=== PATIENT | male | born 1970 | race Caucasian/White ===

== ENCOUNTER 2025-08-24 14:05 | Emergency (ER) | payer BC, SELFPAY ==
--- OUTSIDE RECORDS SUMMARY | 2025-08-23 21:33 | XMS_ITS | Encounter Summary ---
Author Organization [facility] Address [address] [place] [address] Care Team Providers Care Adjunct Mathematics Instructor Name Role Phone Clinic, [facility] Primary Care Provider Reason for Visit * Reason Comments Neck Pain Encounter Details Date Type Department Care Team (Late st Contact Info) Description 08/23/2025 9:33 PM CDT - 08/23/2025 11:54 PM CDT Emergency [facility] Emergency Dept [address] [place] [address] Andreas Blanco, [facility] [address] [place], [place] [id number] Neck pain (Primary Dx) Discharge Disposition: Home or Self Care Social History Tobacco Use Types Packs/Day Years Used Date Smoking Tobacco: Never Smokeless Tobacco: Current Alcohol Use Standard Drinks/Week Comments No 0 (1 standard drink = 0.6 oz pur e alcohol) Adolescent Education Answer Date Record ed Getting School Help Needed Not on file 09/08 Sex and Gender Information Value Date Recorded Sex Assigned at Not on file 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 Gender Identity Not on file Sexual Orientation Not on file documented as of this encounter Last Filed Vital Signs Vital Sign Reading Time Taken Comments Blood Pressure 149/82 08/23/2025 11:10 PM CDT Pulse 98 08/23/2025 6:41 PM CDT Temperature 37.4 C (99.4 F) 08/23/2025 6:41 PM CDT Respiratory Rate 18 08/23/2025 6:41 PM CDT Oxygen Saturation 94% 08/23/2025 11: 10 PM CDT Inhaled Oxygen Concentration - - Weight 111.1 kg (244 lb 14.9 oz) 08/23/2025 6:41 PM CDT Height - - Body Mass Index 34.16 10/04/2017 5:37 PM CDT documented in this encounter Discharge Instructions * Discharge Instructions* Andreas Blanco DO - 08/23/2025 11:28 PM CDT Pain medications as prescribed. Ice and heat as discussed. Follow-up with your orthopedic doctor. Return with any new or worsening symptoms, numbness, tingling, weakness, fevers, any new or worseningsymptoms or for any other concerns documented in this encounter Medications at Time of Discharge methocarbamol (ROBAXIN) 500 MG tablet Take 1 tablet (500 mg) by mouth 4 times daily for 5 days. 20 tablet 08/23/2025 08/28/2025 OMEPRAZOLE PO documented as of this encounter ED Notes * Andreas Blanco DO - 08/23/2025 9:43 PM CDT Emergency Department Note History of Present Illness Chief Complaint Neck Pain HPI Bo Barron Jr. is a 54 year old male who presents to the ED for neck pain. The patient reports that he woke up this morning with neck pain along the right side of his neck the worsens with moving of his neck. The pain is to the point he describes he can't even eat because movement of his neck increases ashley. He denies any arm pain or back pain. Of note, his last dose oxycodone was 1400. Patient is status post left shoulder surgery 4 to 5 days ago. Denies shoulder pain. There is no rednessor swelling or drainage from the shoulder. Denies fever. He had been sleeping in a chair until lastnight when he slept in bed. He woke up this morning he has the pain and stiffness in his neck. Independent Historian None Review of External Notes Past Medical History Medical History and Problem List GERD Hemorrhoid Herniation of cervical intervertebral disc with radiculopathy Presbyopia Regular astigmatism of right eye Medications Celebrex Aspirin 81 Roxicodone Deltasone Omeprazole Surgical History Tonsillectomy ME unlisted procedure hands and finger Physical Exam Patient Vitals for the past 24 hrs: BP Temp Temp src Pulse Resp SpO2 Weight 08/23/25 2310 (!) 149/82 -- -- -- -- 94 % -- 08/23/25 2223 (!) 165/94 -- -- -- -- -- -- 08/23/25 1841 (!) 144/100 99.4 ??F (37.4 ??C) Temporal 98 18 97 % 111.1 kg (244 lb 14.9 oz) Physical Exam Constitutional: Appearance: Normal appearance. Pulmonary: Effort: Pulmonary effort is normal. Musculoskeletal: General: No swelling. Skin: General: Skin is warm and dry. Capillary Refill: Capillary refill takes less than 2 seconds. Neurological: Mental Status: He is alert and oriented to person, place, and time. Diagnostics Lab Results Labs Ordered and Resulted from Time of ED Arrival to Time of ED Departure - No data to display Imaging No orders to display EKG Independent Interpretation None ED Course Medications Administered Medications oxyCODONE-acetaminophen (PERCOCET) 5-325 MG per tablet 2 tablet (2 tablets Oral $Given 08/23/252212) ketorolac (TORADOL) injection 15 mg (15 mg Intramuscular $Given 08/23/252212) LORazepam (ATIVAN) tablet 1 mg (1 mg Oral $Given 08/23/252212) ondansetron (ZOFRAN ODT) ODT tab 4 mg (4 mg Oral $Given 08/23/252212) dexAMETHasone PF (DECADRON) injection 10 mg (10 mg Intramuscular $Given 08/23/252212) Procedures Procedures Discussion of Management None ED Course ED Course as of 08/23/252328Aug 23, [id number] I obtained history and examined the patient as noted above Additional Documentation None Medical Decision Making / Diagnosis [facility] Diagnoses: None MIPS None [facility] Bo Barron Jr. is a 54 year old male pain to the paraspinous musculature of the neck. A dressing on his left shoulder is clean, dry, intact. No fevers. Good perfusion on exam. Denies shoulder pain. Denies trauma or injury but did sleep in a new set up last night after which he woke up with pain. He does not have any fevers. Following treatment patient feels much better. He is able to rangeof motion the neck. We discussed outpatient management and reasons for return Disposition The patient was discharged. Diagnosis ICD-10-CM 1. Neck pain M54.2 Discharge Medications New Prescriptions METHOCARBAMOL (ROBAXIN) 500 MG TABLET Take 1 tablet (500 mg) by mouth 4 times daily for 5 days. Scribe Disclosure: I, Dewayne Burris, am serving as a scribe at 9:55 PM on 08/23/2025 to document services personally performed by Andreas Blanco DO based on my observations and the provider's statements to me. Andreas Blanco DO 08/23/252328 * Kassidy Menon RN - 08/23/2025 6:43 PM CDT Presents to triage with c/o lateral neck pain. He had L shoulder replacement about a week ago and has been in a sling and sleeping in a chair since. Last night he decided to sleep in his bed and thentoday he has had severe muscle pain on both sides of his neck. Oxy at 1400, flexeril at 1600. He had mild relief of symptoms and was able to sleep a bit after flexeril. documented in this encounter Plan of Treatment Not on file documented as of this encounter Visit Diagnoses Diagnosis Neck pain- Primary Cervicalgia documented in this encounter Administered Medications Inactive Administered Medications - up to 3 most recent administrations Medication Order MAR Action Action Date Dose Rate Site dexAMETHasone PF (DECADRON) injection 10 mg 10 mg, Intramuscular, ONCE, Administer over 1 Minutes, On Sat08/23/25 at 2205, For 1 dose $Given 08/23/2025 10:13 PM CDT 10 mg ketorolac (TORADOL) injection 15 mg 15 mg, Intramuscular, ONCE, On Sat08/23/25 at 2205, For 1 dose, Can cause pain on injection. If ordered intravenously (IV) : administer through a running maintenance fluid over 1 minute followed by a flush. If patient complains of pain on injection, may dilute 15-30 mg in 5 mL and push over 1 to 2 minutes. $Given 08/23/2025 10:13 PM CDT 15 mg LORazepam (ATIVAN) tablet 1 mg 1 mg, Oral, ONCE, On Sat08/23/25 at 2205, For 1 dose $Given 08/23/2025 10:13 PM CDT 1 mg ondansetron (ZOFRAN ODT) ODT tab 4 mg 4 mg, Oral, ONCE, On Sat08/23/25 at 2205, For 1 dose, With dry hands, peel back foil backing and gently remove tablet. Do not push oral disintegrating tablet through foil backing. Administer immediately on tongue and oral disintegrating tablet dissolves in seconds, then swallow with saliva. Liquid not required. $Given 08/23/2025 10:13 PM CDT 4 mg oxyCODONE-acetaminophen (PERCOCET) 5-325 MG per tablet 2 tablet 2 tablet, Oral, ONCE, On Sat08/23/25 at 2205, For 1 dose, Maximum acetaminophen dose from all sources= 75 mg/kg/day not to exceed 4 grams $Given 08/23/2025 10:13 PM CDT 2 tablets documented in this encounter Active and Recently Administered Medications Times are shown in CDT. Scheduled Medication Order 08/21/2025 08/22/2025 08/23/2025 dexAMETHasone PF (DECADRON) injection 10 mg (COMPLETED) 10 mg, Intramuscular, ONCE, Administer over 1 Minutes, On Sat08/23/25 at 2205, For 1 dose 2212 ($Given - Provi leta: Lakshmi Galindo RN) ketorolac (TORADOL) injection 15 mg (COMPLETED) 15 mg, Intramuscular, ONCE, On Sat08/23/25 at 2205, For 1 dose, Can cause pain on injection. If ordered intravenously (IV) : administer through a running maintenance fluid over 1 minute followed by a flush. If patient complains of pain on injection, may dilute 15-30 mg in 5 mL and push over 1 to 2 minutes. 2212 ($Given - Provi leta: Lakshmi Galindo RN) LORazepam (ATIVAN) tablet 1 mg (COMPLETED) 1 mg, Oral, ONCE, On Sat08/23/25 at 2205, For 1 dose 2212 ($Given - Provi leta: Lakshmi Galindo RN) ondansetron (ZOFRAN ODT) ODT tab 4 mg (COMPLETED) 4 mg, Oral, ONCE, On Sat08/23/25 at 2205, For 1 dose, With dry hands, peel back foil backing and gently remove tablet. Do not push oral disintegrating tablet through foil backing. Administer immediately on tongue and oral disintegrating tablet dissolves in seconds, then swallow with saliva. Liquid not required. 2212 ($Given - Provi leta: Lakshmi Galindo RN) oxyCODONE-acetaminophen (PERCOCET) 5-325 MG per tablet 2 tablet (COMPLETED) 2 tablet, Oral, ONCE, On Sat08/23/25 at 2205, For 1 dose, Maximum acetaminophen dose from all sources= 75 mg/kg/day not to exceed 4 grams 2212 ($Given - Provi leta: Lakshmi Galindo RN) documented in this encounter Care Teams Adjunct Mathematics Instructor Relationship Specialty Start Date End Date [facility], [facility] [address] [place] [address] PCP - General 10/04/17 documented as of this encounter
--- OUTSIDE RECORDS SUMMARY | 2025-08-24 14:08 | XMS_ITS | Encounter Summary ---
Author Organization [facility] Address [address] [place] [address] Care Team Providers Care Manager Respiratory Name Role Phone [facility] Thornton Ruston Primary Care Provider Encounter Details Date Type Department Care Team (Latest Contact Info) Description 08/23/2025 Travel Social History Tobacco Use Types Packs/Day Years Used Date Smoking Tobacco: Never Smokeless Tobacco: Current Alcohol Use Standard Drinks/Week Comments No 0 (1 standard drink = 0.6 oz pur e alcohol) Adolescent Education Answer Date Record ed Getting School Help Needed Not on file 09/08 Sex and Gender Information Value Date Recorded Sex Assigned at Not on file 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
--- OUTSIDE RECORDS SUMMARY | 2025-08-24 14:08 | XMS_ITS | Clinical Summary ---
Author Organization [facility] Address Counts include 234 beds at the [facility] [place] [address] Care Team Providers Care Tour Sales Representative Name Role Phone Guido Lundy MD Primary Care Provider [phone] Allergies Active Allergy Reactions Criticality Noted Date Comments Penicillins Angioedema 02/12/2011 Witch Karla Rash Medium 07/23/2013 Medications Omeprazole 20 mg tablet Take 1 tablet by mouth once daily before a meal. 0 03/23/2019 Active acetaminophen (TYLENOL EXTRA STRGTH) 500 mg tablet 08/17/2025 Active Active Problems Problem Noted Date Diagnosed Date Regular astigmatism of right eye 02/15/2020 Presbyopia 06/13/2018 Herniation of cervical inter vertebral disc with radiculopathy 12/25/2017 Overview (12/28/2024): December 2017: MRI showing right foraminal Stenosis at C4-C5, C7-T1, and T1-T2. JANET done at [facility] Dec: Rayus C7-T1 interlaminar JANET. Hemorrhoid 08/05/2013 GERD (gastroesophageal reflux disease) Encounters Date Type Department Care Team Description 08/17/2025 3:15 PM CDT Office Visit [facility] [place] [place] [address] [place] [address] Jessie Sanchez PA Pre-Op Exam (DOS 08/19/25 ) 08/17/2025 Travel from Last 3 Months Immunizations Immunization Administration Dates Next Due Influenza, IIV4 09/02/2020,08/30/2017 Tdap 06/24/2014 Family History Medical History Relation Name Comments Heart Disease Father Hypertension Father Cancer-breast Mother Other Mother glaucoma Heart Disease Paternal Grandfather Severa l MIs, pacemaker Cancer Paternal Grandmother unsure type Relation Name Status Comments Father Alive Maternal Grandfather Maternal Grandmother Mother Alive Paternal Grandfather Paternal Grandmother Social History Tobacco Use Types Packs/Day Years Used Date Smoking Tobacco: Former Smokeless Tobacco: Current Snuff, Chew Tobacco Cessation:Ready to Q uit: No; Counseling Given: Yes Comments:about 1/4 a tin per day Alcohol Use Standard Drinks/Week Comments No 0 (1 standard drink = 0.6 oz pur e alcohol) Alcoholic Drinks/day: <1 PHQ-2 Answer Date Recorded PHQ-2 TOTAL SCORE 0 11/15/2022 Social Connections Answer Date Recorded Do you often feel lonely or isolated from those around you? 0 01/22/2025 Alcohol Use Answer Date Recorded How often do you have a drink containing alcohol ? 1 08/17/2025 How many drinks containing a lcohol do you have on a typical day when you are drinking? 0 08/17/2025 How often do you have five or more drinks on one occasion? 1 08/17/2025 Financial Resource Strain Answer Date R ecorded Difficulty of Paying Living Expenses 3 01/22/2025 Difficulty of Paying Living Expenses Not on file 01/22/2025 Food Insecurity Answer Date Recorded Do you worry your food will run out before you are able to buy more? 1 01/22/2025 Transportation Needs Answer Date Record ed Does lack of transportation keep you from medica l appointments? 1 01/22/2025 Does lack of transportation keep you from work, meetings or getting things that you need? 1 01/22/2025 Housing Stability Answer Date Recorded What is your housing situation today? 1 01/22/2025 Utilities Answer Date Recorded Do you have trouble paying f or utilities (for example, heat, electricity, water, phone)? 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 Not on file Not on file Obstetrics History Last Filed Vital Signs Vital Sign Reading Time Taken Comments Blood Pressure 139/79 08/17/2025 3:15 PM CDT Pulse 62 08/17/2025 3:15 PM CDT Temperature 36.6 C (97.8 F) 11/15/2022 2:10 PM EMERGENCY PLANNING AND RESPONSE MANAGER Respiratory Rate 16 11/15/2022 2:10 PM EMERGENCY PLANNING AND RESPONSE MANAGER Oxygen Saturation 96% 08/17/2025 3:15 PM CDT Inhaled Oxygen Concentration - - Weight 111 kg (244 lb 11.2 oz) 08/17/2025 3:15 P M CDT Height 177.8 cm (5' 10) 08/17/2025 3:15 PM CDT Body Mass Index 35.11 08/17/2025 3:15 PM CDT Plan of Treatment Upcoming Encounters Date Type Department Care Team (Late st Contact Info) Description 08/26/2025 1:50 PM CDT [facility] [address] [place] [address] Guido Lundy MD [address] [place] [address] Health Maintenance Due Date Last Done Comments HIV for age 15-65 1985 Hepatitis C screening for ag e 18-79 1988 Hepatitis B series for 19+ ( 1 of 3 - 19+ 3-dose series) 1989 Colonoscopy through age 75 2015 Pneumococcal series for age 50+ (1 of 1 - PCV) 2020 Zoster (shingles) series for age 50+ (1 of 2) 2020 Depression screening for age 12+ 11/15/2023 11/15/2022, 09/02/2020, 04/01/2017, Additional history exists Tetanus booster 06/24/2024 06/24/2014 COVID-19 vaccine series ( - season) 2025 Influenza Vaccine (#1) 2025 09/02/2020, 2016 Lipids for age 45-75 09/02/2025 09/02/2020, 04/01/2017, 06/24/2014 BMI (ht and wt on same day) for age 18+ 08/17/2026 08/17/2025, 10/09/2024, 11/15/2022, Additional history exists RSV vaccine for adults or (1 - 1-dose 75+ series) 2045 Procedures Procedure Name Priority Date/Time Associated Diagnosis Comments HEMOGLOBIN Routine 08/17/2025 3:36 PM CDT Pre-op exam Arthritis of left shoulder region LIPID PANEL W REFLEX MEASURED LDL Routine 09/02/2020 4:13 PM CDT Screening cholesterol level from Last 3 Months or Most Recently Relevant to Health Maintenance Results * HEMOGLOBIN (08/17/2025 3:36 PM CDT) HEMOGLOBIN 14.4 13.2 - 17.1 g/dL 08/18/2025 9:53 AM CDT [facility] MCV 87.2 80.0 - 100.0 fL 08/18/2025 9:53 AM CDT [facility] Blood BLOOD SPECIMEN / Unknown Non-Lab Venipuncture / Unknown 08/17/2025 3:36 PM CDT 08/17/2025 3:36 PM CDT Jessie IVAN HEMATOLOGY Final R esult [facility] [address] [address], [place] [phone] * LIPID PANEL W REFLEX MEASURED LDL (09/02/2020 4:13 PM CDT) CHOLESTEROL,TOTAL 162 100 - 199 mg/dL 09/02/2020 7:05 PM CDT [facility] TRIGLYCERIDES 66 <150 mg/dL 09/02/2020 7:05 PM CDT [facility] HDL CHOLESTEROL 51 >40 mg/dL 0 7:05 PM CDT [facility] NON-HDL CHOLESTEROL 111 <145 mg/dl 09/02/2020 7:05 PM CDT [facility] CHOL/HDL RATIO 3.18 <4.50 09/02/2020 7:05 PM CDT [facility] LDL CHOLESTEROL 98 <=130 mg/dL 09/02/2020 7:05 PM CDT [facility] PROVIDER ORDERED STATUS RANDOM 09/02/2020 7:05 PM CDT [facility] Blood BLOOD SPECIMEN / Unknown Venipuncture / Unknown 09/02/2020 4:13 PM CDT 09/02/2020 4:14 PM CDT us Sandhya Nancy Rafaela DO CHEMISTRY Final Resul t [facility] [address] [place] [address], from Last 3 Months or Most Recently Relevant to Health Maintenance Insurance [employer] [facility] * Guarantor: BTD Account Type Relation to Patient Date of Phone Billing Address [facility] Employer ATTN ACCOUNTS PAYABLE [address] [place] [address] Care Teams Tour Sales Representative Relationship Specialty Start Date End Date Guido Lundy MD [address] [place] [address] PCP - General Family Practice 11/14/23
--- OUTSIDE RECORDS SUMMARY | 2025-08-24 14:08 | XMS_ITS | Clinical Summary ---
Author Organization [facility] Address [address] [place] [address] Care Team Providers Care Gang Worker Name Role Phone Clinic, [facility] Don[facility]ly Primary Care Provider Allergies Active Allergy Reactions Criticality Noted Date Comments Penicillins 10/04/2017 No Clinical Screening - Other Allergy 10/04/2017 Witchhazel Witch Karla Rash Medium 07/23/2013 Medications OMEPRAZOLE PO Active methocarbamol (ROBAXIN) 500 MG tablet Take 1 tablet (500 mg) by mouth 4 times daily for 5 days. 20 tablet 08/23/2025 Active Encounters Date Type Department Care Team Description 08/23/2025 9:33 PM CDT - 08/23/2025 11:54 PM CDT Emergency [facility] Emergency Dept [address] [place] [address] Andreas Blanco, Neck pain (Primary Dx) Discharge Disposition: Home or Self Care 08/23/2025 Travel from Last 3 Months Social History Tobacco Use Types Packs/Day Years Used Date Smoking Tobacco: Never Smokeless Tobacco: Current Alcohol Use Standard Drinks/Week Comments No 0 (1 standard drink = 0.6 oz pur e alcohol) Adolescent Education Answer Date Record ed Getting School Help Needed Not on file 09/08 Sex and Gender Information Value Date Recorded Sex Assigned at Not on file 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 Gender Identity Not on file Sexual Orientation Not on file Last Filed Vital Signs Vital Sign Reading [...] 14.9 oz) 08/23/2025 6:41 PM CDT Height 180.3 cm (5' 11) 10/04/2017 5:37 PM CDT Body Mass Index 34.16 10/04/2017 5:37 PM CDT Plan of Treatment Health Maintenance Due Date Last Done Comments ADVANCE CARE PLANNING 1970 ANNUAL REVIEW OF HM ORDERS 1970 CT COLONOGRAPHY 1970 FIT 1970 FLEX SIG 1970 sDNA (Cologuard) 1970 COLONOSCOPY 1980 COLORECTAL CANCER SCREENING 1980 HIV SCREENING 1985 HEPATITIS C SCREENING 1988 HEPATITIS B VACCINE (1 of 3 - 19+ 3-dose series) 1989 LIPID 2010 PNEUMOCOCCAL VACCINE 50+ YEARS (1 of 1 - PCV) 2020 ZOSTER VACCINE (1 of 2) 2020 DIABETES SCREENING 10/04/2020 10/04/2017 YEARLY PREVENTIVE VISIT 09/02/2021 09/02/20 20, 04/01/2017, 02/12/2011 DTAP/TDAP/TD VACCINE (2 - Td or Tdap) 06/24/2024 06/24/2014 PHQ-2 (once per calendar year) 2024 COVID-19 VACCINE (1 - 2023-2 5 season) 2025 INFLUENZA VACCINE (#1) 2025 0, 08/30/2017 HPV VACCINE (No Doses Required) Completed MENINGITIS VACCINE Aged Out No longer eligible based on patient's age to complete this topic Procedures Procedure Name Priority Date/Time Associated Diagnosis Comments COMPREHENSIVE METABOLIC PANEL STAT 10/04/2017 5:43 PM CDT from Last 3 Months or Most Recently Relevant to Health Maintenance Results * (ABNORMAL) Comprehensive metabolic panel (10/04/2017 5:43 PM T) Sodium 138 133 - 144 mmol/L 10/04/2017 6:44 PM [facility] Potassium 4.0 3.4 - 5.3 mmol/L 10/04/2017 6:44 PM [facility] Chloride 104 94 - 109 mmol/L 10/04/2017 6:44 PM [facility] Carbon Dioxide 27 20 - 32 mmol/L 10/04/2017 6:44 PM [facility] Anion Gap 7 3 - 14 mmol/L 10/04/2017 6:44 PM [facility] Glucose 88 70 - 99 mg/dL 10/04/2017 6:44 PM [facility] Urea Nitrogen 24 7 - 30 mg/dL 10/04/2017 6:44 PM [facility] Creatinine 0.98 0.66 - 1.25 mg/dL 10/04/2017 6:44 PM [facility] GFR Estimate 82 >60 mL/min/1.7 m2 10/04/2017 6:44 PM [facility] Comment:Non GFR Calc GFR Estimate If Black >90 >60 mL/min/1.7 m2 10/04/2017 6:44 PM [facility] Comment: GFR Calc Calcium 8.4(L) 8.5 - 10.1 mg/dL 10/04/2017 6:44 PM [facility] Bilirubin Total 0.3 0.2 - 1.3 mg/dL 10/04/2017 6:44 PM [facility] Albumin 4.0 3.4 - 5.0 g/dL 10/04/2017 6:44 PM [facility] Protein Total 7.2 6.8 - 8.8 g/dL 10/04/2017 6:44 PM [facility] Alkaline Phosphatase 81 40 - 150 U/L 10/04/2017 6:44 PM [facility] ALT 22 0 - 70 U/L 10/04/2017 6:44 PM [facility] AST 21 0 - 45 U/L 10/04/2017 6:44 PM CDT [facility] Blood specimen (specimen) 10/04/2017 5:43 PM CDT 10/04/2017 6:22 PM CDT us Gilmer Petersen MD LAB - BLOOD ORDERABLES Fi nal Result [facility] [address] [place] [id number] [phone] from Last 3 Months or Most Recently Relevant to Health Maintenance Insurance Care Teams Gang Worker Relationship Specialty Start Date End Date [facility], [facility] [address] [place] [address] PCP - General 10/04/17
[2025-08-24 14:25] VITALS: BP 142/90; PULSE 101; RESP 18; TEMP 36.7; O2SAT 93; BMI 34.2
--- NOTE | 2025-08-24 16:29 | ED.GENADULT ---
HPI - General Adult General Date Seen: 08/24/25 Chief complaint: Neck Injury/Pain Stated complaint: Pain in neck/shortness of breath Time Seen by Provider: 08/24/25 16:28 History of Present Illness HPI narrative: 54 yo M with a past medical history of known bulging cervical discs at C3, C4, C5, C6. He has had trouble with neck pain off and on for a few years but has never had neck surgery. He has had steroid injections several times in the past, most recently about 1 year ago. He also had trouble with his left shoulder so underwent a left shoulder total replacement done through [facility] 3 4 days ago last Saturday. He was sent home from [facility] with pain meds but says that his shoulders really not been hurting him very much. He is when wearing his immobilizer in doing the appropriate exercises with his hand. He was sleeping sitting up in the chair for the 1st few days but then on Saturday night tried to sleep lying flat in bed. When he woke up Saturday he was having severe pain in the posterior midline of his C-spine at the base of his skull. The pain hurts a lot whenever he tries to turn his head side to side and sometimes radiates up into the base of his skull. He feels like he probably re-exacerbate of 1 of his discs. He is not having any pain or numbness radiating down his arms. No pain or numbness in his low back or his legs. No anterior neck pain. No sore throat. No fever. He went to the ER at [facility] yesterday and received oral pain med and was discharged home. His pain is not any better today. He came to the ER here in [place] today because he was dissatisfied with his [facility] yesterday. He is worried that he has a bulging disc in his neck and wants an MRI of his C-spine. Additionally he has having ongoing severe pain and cannot turn his head side to side. Related Data Home Medications ?Medication ?Instructions ?Recorded ?Confirmed acetaminophen 500 mg tablet 1,000 mg PO Q6H PRN pain 08/24/25 08/24/25 aspirin 81 mg tablet,delayed 162 mg PO DAILY 08/24/25 08/24/25 release celecoxib 200 mg capsule 200 mg PO BID 08/24/25 08/24/25 oxycodone 5 mg tablet 5 - 10 mg PO Q4H PRN pain 08/24/25 08/24/25 sennosides 8.6 mg-docusate sodium 2 tab PO DAILY PRN 08/24/25 08/24/25 50 mg tablet (Senexon-S) Previous Rx's ?Medication ?Instructions ?Recorded hydromorphone 2 mg tablet 2 mg PO Q4-6H PRN pain #14 tabs 08/24/25 (Dilaudid) Allergies Allergy/AdvReac Type Severity Reaction Status Date / Time Penicillins Allergy Verified 08/24/25 14:24 witch [facility] Allergy Verified 08/24/25 14:24 [facility] PFSH Social History Smoking Status: Never smoker Do you use any of these nicotine containing products: Smokeless Tobacco How often do you have a drink containing alcohol: never AUDIT-C Alcohol total score: 0 Non-prescribed substance use: denies use Exam Narrative: Exam Narrative: Constitutional: Appears well-developed and well-nourished. Alert. Conversant. Non toxic. HENT: Head: Atraumatic. Nose: Nose normal. Mouth/Throat: Oral mucosa is clear and moist. no trismus. Pharynx normal. Tonsils symmetric. No tonsillar enlargement, erythema, or exudate. Eyes: Conjunctivae normal. EOM normal. Pupils equal, round, and reactive to light. No scleral icterus. Neck: Range of motion limited by pain. The risk fairly comfortable with his neck and his neutral position but when he tries to flex or extend his neck or when he tries to rotate his neck he has pain in back of his. Anterior Neck supple. No tracheal deviation present. Cardiovascular: Normal rate, regular rhythm. No gallop. No friction rub. No murmur heard. Symmetric radial artery pulses Pulmonary/Chest: Effort normal. No stridor. No respiratory distress. No wheezes. No rales. No rhonchi . No tenderness. Abdominal: Soft. No distension. No mass. No tenderness. No rebound. No guarding. Musculoskeletal: RUE: Normal range of motion. No tenderness. No deformity LUE: Wearing a shoulder immobilizer. No obvious swelling of the left upper extremity. RLE: Normal range of motion. No edema. No tenderness. No deformity LLE: Normal range of motion. No edema. No tenderness. No deformity Lymph: No anterior or posterior cervical adenopathy. Neurological: Mental status normal. Attention normal. Alert and oriented x3. GCS 15. Memory normal. Speech fluent. Cognition normal. Cranial Nerves intact II-XII except I did not formally test gag or visual acuity. EOMI. Palate elevates symmetrically and tongue protrudes in the midline. Strength: 5/5 in the right deltoid, trapezius, biceps, triceps, leasing representative. Limited exam on the left because he is in a shoulder immobilizer. 5/5 leasing representative on the right and left 5/5 thumb opposition on the right and left 5/5 finger abduction on the right and left 5/5 hip flexors (L3) on the right and left 5/5 quadriceps (L4) on the right and left 5/5 tibialis anterior on the right and left 5/5 EHL (L5) on the right and left 5/5 gastrocnemius (S1) on the right and left 5/5 hamstring on the right and left Sensation intact to light touch in both upper extremities (C4-T1) Sensation intact to light touch in Both lower extremities (L4-S1). Finger to nose and coordination normal. Psychiatric: Normal mood. Normal affect. Const: Vital Signs, click to edit/add: Vital Signs - 24 hr 08/24/25 14:25 08/24/25 18:21 Temperature 98.0 F Pulse Rate 79 Pulse Rate [Right Pulse Oximeter] 101 H Respiratory Rate 18 16 Blood Pressure 115/86 Blood Pressure [Ri ght Upper Arm] 142/90 H Pulse Oximetry 93 100 Oxygen Delivery Me thod Room Air Room Air Course Course ED Course: Recheck-pain improved somewhat after Dilaudid. Feels more comfortable now and well enough that he can go home. Discussed options for pain management at. Vital Signs Vital signs: Initial Vital Signs Temperature 98.0 F 08/24/25 14:25 Temperature Source Temporal Artery Scan 08/24/25 14:25 Pulse Rate 101 H 08/24/25 14:25 Respiratory Rate 18 08/24/25 14:25 Blood Pressure 142/90 H 08/24/25 14:25 Blood Pressure Mean 107 H 08/24/25 14:25 Blood Pressure Position Sitting 08/24/25 14:25 Pulse Oximetry 93 08/24/25 14:25 Oxygen Delivery Method Room Air 08/24/25 14:25 Vital Signs Temperature 98.0 F 08/24/25 14:25 Pulse Rate 101 H 08/24/25 14:25 Respiratory Rate 18 08/24/25 14:25 Blood Pressure 142/90 H 08/24/25 14:25 Pulse Oximetry 93 08/24/25 14:25 Oxygen Delivery Method Room Air 08/24/25 14:25 Temperature 98.0 F 08/24/25 14:25 Pulse Rate 79 08/24/25 18:21 Respiratory Rate 16 08/24/25 18:21 Blood Pressure 115/86 08/24/25 18:21 Pulse Oximetry 100 08/24/25 18:21 Oxygen Delivery Method Room Air 08/24/25 18:21 Medications Administered Medications: Discontinued Medications Generic Name Dose Route Start Last Admin Trade Name Xavierq PRN Reason Stop Dose Admin Hydromorphone HCl 1 mg 08/24/25 16:45 08/24/25 17:27 Hydromorphone 0.5 Mg/0.5 Ml Inj IVP 08/24/25 16:46 1 mg ONCE ONE Administration Ketorolac Tromethamine 15 mg 08/24/25 16:45 08/24/25 17:27 Ketorolac 15 Mg/Ml Inj IVP 08/24/25 16:46 15 mg ONCE ONE Administration Ondansetron HCl 4 mg 08/24/25 16:45 08/24/25 17:27 Ondansetron 2 Mg/Ml Inj IVP 08/24/25 16:46 4 mg ONCE ONE Administration Medical Decision Making MDM Narrative Medical decision making narrative: This patient presented with neck pain. Broad differential considered. The patient did not sustain any trauma, therefore x-rays are not necessary due to the low likelihood of fracture or subluxation. He is not having any numbness or weakness down his legs or arms to suggest cervical radiculopathy but given severe pain and pain with movement, consider possible bulging disc from his sleep, or spinal stenosis. MRI of the C-spine shows no evidence for severe bulging disc, stenosis, central cord syndrome, discitis, spinal/epidural space hematoma or epidural abscess. The neurological exam is normal and the patient's symptoms seem consistent with a musculoskeletal issues and significant muscle spasm. Pain has improved with interventions in the emergency department. He is not having any sore throat or anterior neck pain or dysphagia or dysarthria to raise concern for peritonsillar abscess, retropharyngeal abscess. No fever. At this point pain seems more consistent with musculoskeletal neck pain rather than emergent vascular pathology such as vertebral artery dissection, aneurysm, or subarachnoid hemorrhage. At this point I do not think the patient needs CT angiogram or CT head. He is not having any associated fever or headache to suggest meningitis with his neck stiffness. He already has oxycodone at home which is not effective in managing his pain. Pain is improved with Dilaudid here in the ER. Will try a short prescription for Dilaudid tablets to help manage his pain. He already has Robaxin muscle relaxer prescription was given to him by the [facility] ER yesterday, but he has not started taking it. Encouraged him to start with ibuprofen and Tylenol. At Robaxin for muscle spasm. At the prescription pain killer ,Dilaudid, if needed for severe uncontrolled pain. Opiate and sedation precautions reviewed in detail with the patient and his . The patient will be discharged with pain medications to use as directed. Ice or heat to the back and stretching exercises. No heavy lifting, bending or twisting. Return if increasing pain, numbness, weakness, or bowel or bladder dysfunction. Already has an appointment with his PCP in 2 days to recheck. Encouraged to keep that. We did send him with a digital copy of his MRI to bring with him to his PCP office. Return precautions reviewed and questions answered. Imaging Data MRI C spine: Attestation: I have reviewed the pertinent imaging results. Radiologist's impression: Findings: The vertebral body heights appear maintained without evidence of fracture. No discrete T1 hypointense marrow infiltrating process. Mild multilevel disc height loss and degeneration. Straightening of the cervical lordosis. No abnormal cord signal. C2-3: No spinal canal or neural foraminal narrowing. C3-4: Disc osteophyte complex results in minimal spinal canal narrowing. Mild neural foraminal narrowing secondary to uncovertebral joint and facet arthropathy. C4-5: Grade 1 degenerative retrolisthesis. Mild spinal canal narrowing. Moderately severe neural foraminal narrowing secondary to uncovertebral joint and facet arthropathy. C5-6: Shallow disc bulge with minimal spinal canal narrowing. Moderate neural foraminal narrowing. C6-7: No spinal canal or neural foraminal narrowing. Mild facet arthropathy. C7-T1: No spinal canal narrowing. [id number] right neural foraminal narrowing. Left neural foramen is patent. Impression: 1. At C4-5, grade 1 degenerative anterolisthesis with moderately severe neural foraminal stenosis. 2. At C5-6, moderate neural foraminal narrowing. 3. Mild spondylosis at the remaining cervical levels. 4. No abnormal cord signal. Discharge Plan Discharge Clinical Impression: Neck pain Patient Disposition: Home, Self-Care Condition: Stable Instructions: Acute Neck Pain (ED) Additional Instructions: As we discussed, so for your MRI shows arthritis of some of the joints in your neck but no severe bulging disc or any sign the your spinal cord is being pinched. To treat her pain, start with ibuprofen 600 mg by mouth 3 times daily. At the Robaxin (prescription that was given to you yesterday by Reggie Jacobsne) for muscle spasm and pain uncontrolled by the ibuprofen. Use the prescription pain killer (Dilaudid) if needed for pain uncontrolled by other medications. Be careful because Dilaudid can cause dizziness, drowsiness, constipation, and can be addictive. Return to the ER right away if you have worsening symptoms such as severe uncontrolled pain in your neck, numbness or weakness in your arms or legs, severe headache, vomiting, fever. Even if you are getting better, Please recheck with your regular doctor, Dr. Gordon, on . Prescriptions: New hydromorphone [Dilaudid] 2 mg tablet 2 mg PO Q4-6H PRN (Reason: pain) Qty: 14 0RF No Action celecoxib 200 mg capsule 200 mg PO BID sennosides-docusate sodium [Senexon-S] 8.6-50 mg tablet 2 tab PO DAILY PRN aspirin 81 mg tablet,delayed release (DR/EC) 162 mg PO DAILY acetaminophen 500 mg tablet 1,000 mg PO Q6H PRN (Reason: pain) oxycodone 5 mg tablet 5 - 10 mg PO Q4H PRN (Reason: pain) Follow Up/Referrals: Guido Lundy MD [Primary Care Provider, Family Practice] Stand Alone Forms: MyHealth Info Instructions
--- NOTE | 2025-08-24 16:45 | CRLHL7_ITS ---
For Patients: As a result of the Century Cures Act, medical imaging exams and procedure reports are released immediately into your electronic medical record. You may view this report before your referring provider. If you have questions, please contact your health care provider. Indication: Neck pain. Technique: MRI of the cervical spine was performed without the use of intravenous contrast. Comparison: None relevant available. Findings: The vertebral body heights appear maintained without evidence of fracture. No discrete T1 hypointense marrow infiltrating process. Mild multilevel disc height loss and degeneration. Straightening of the cervical lordosis. No abnormal cord signal. C2-3: No spinal canal or neural foraminal narrowing. C3-4: Disc osteophyte complex results in minimal spinal canal narrowing. Mild neural foraminal narrowing secondary to uncovertebral joint and facet arthropathy. C4-5: Grade 1 degenerative retrolisthesis. Mild spinal canal narrowing. Moderately severe neural foraminal narrowing secondary to uncovertebral joint and facet arthropathy. C5-6: Shallow disc bulge with minimal spinal canal narrowing. Moderate neural foraminal narrowing. C6-7: No spinal canal or neural foraminal narrowing. Mild facet arthropathy. C7-T1: No spinal canal narrowing. [id number] right neural foraminal narrowing. Left neural foramen is patent. Impression: 1. At C4-5, grade 1 degenerative anterolisthesis with moderately severe neural foraminal stenosis. 2. At C5-6, moderate neural foraminal narrowing. 3. Mild spondylosis at the remaining cervical levels. 4. No abnormal cord signal. Dictated by Rell Nolasco MD @ 08/24/2025 5:48:43 PM (Electronically Signed)
[2025-08-24] MEDS: ONDANSETRON 2 MG/ML inj 4 MG IVP (17:27)
[2025-08-24 18:21] VITALS: BP 115/86; PULSE 79; RESP 16; O2SAT 100
== END 2025-08-24 18:53 | disposition home or self-care (01) ==
PROVIDERS: Emergency Provider Emergency Medicine; PCP Family Medicine
DX: M54.2 Cervicalgia (principal)
CPT/HCPCS: 72141; 96374; 96375; 99283; 99284; J1171; J1885; J2405